=== PATIENT | female | born 1940 | race Caucasian/White ===

== ENCOUNTER 2017-12-01 19:10 | Emergency (ER) | payer MEDICARE, BC ==
--- NOTE | 2017-12-01 20:00 | EDM.PDOC ---
ED HPI GENERAL MEDICAL PROBLEM - General Stated Complaint: POSSIBLE BLOOD INFECTION Time Seen by Provider: 12/01/17 19:20 Source of Information: Reports: Patient History Limitations: Reports: No Limitations - History of Present Illness INITIAL COMMENTS - FREE TEXT/NARRATIVE: Patient comes in today with UTI symptoms. Patient's had ongoing issues with chronic UTIs for the past couple months she was seen in October and November both her UTI diagnosed TO BE ON MACROBID both times. Last dose OF MACROBID WAS YESTERDAY PATIENT STARTED HAVING SOME SYMPTOMS AGAIN TODAY BURNING FREQUENCY HESITANCY PATIENT DID TAKE 2 TABLETS OF AZO PRIOR TO COMING HERE. Denies any fever. 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 ASSISTANT: Reports: Other (see below) (azo) - Related Data Allergies Allergy/AdvReac Type Severity Reaction Status Date / Time aspirin Allergy Ringing in Verified 12/01/17 20:02 the Ears cefadroxil [Cefadroxil] Allergy Cough Verified 12/01/17 20:02 celecoxib [From Celebrex] Allergy Ringing in Verified 12/01/17 20:02 the Ears fexofenadine HCl Allergy Ringing in Verified 12/01/17 20:02 [From Linn] the Ears ibuprofen Allergy Ringing in Verified 12/01/17 20:02 the Ears Penicillins Allergy Itching Verified 12/01/17 20:02 Home Meds: Home Meds Ciprofloxacin [IJD: Ciprofloxacin HCl] 500 mg PO BID 7 Days #14 tab 12/01/17 [Rx ] Past Medical History Musculoskeletal History: Reports: Back Pain, Chronic - Past Surgical History Female Surgical History: Reports: Breast Biopsy Social & Family History - Tobacco Use Smoking Status *Q: Never Smoker Second Hand Smoke Exposure: No - Caffeine Use Caffeine Use: Reports: Coffee Caffeine Use Comment: in the morning - Alcohol Use Days Per Week of Alcohol Use: 0 - Recreational Drug Use Recreational Drug Use: No ED ROS GENERAL - Review of Systems Review Of Systems: See Below Constitutional: Reports: No Symptoms HEENT: Reports: No Symptoms Respiratory: Reports: No Symptoms Cardiovascular: Reports: No Symptoms GI/Abdominal: Reports: No Symptoms : Reports: Dysuria, Frequency, Pain, Urgency Musculoskeletal: Reports: No Symptoms Skin: Reports: No Symptoms ED EXAM, RENAL/ - Physical Exam Exam: See Below Exam Limited By: No Limitations General Appearance: Alert, WD/WN, No Apparent Distress Respiratory/Chest: No Respiratory Distress, Lungs Clear GI/Abdominal: Normal Bowel Sounds, Soft, Non-Tender, No Distention, No Abnormal Bruit, No Mass Back Exam: Normal Inspection, Full Range of Motion Extremities: Normal Inspection, Normal Range of Motion Neurological: Alert, Oriented, CN II-XII Intact, Normal Cognition Course - Orders/Labs/Meds Orders: Active Orders 24 hr Category Date Time Status CULTURE URINE [RM] Stat Lab 12/01/17 19:16 Uncollected UA W/MICROSCOPIC [URIN] Stat Lab 12/01/17 19:16 Uncollected Departure - Departure Time of Disposition: 20:20 Disposition: Home, Self-Care 01 Condition: Good Clinical Impression: UTI, Urinary tract infectious disease - Discharge Information Instructions: Urinary Tract Infection, Adult, [id number] Forms: ED Department Discharge Additional Instructions: Drink plenty of fluids Take AZO as needed for discomfort for max of 4-5 days cultures were obtained for sensitivity - My Orders Last 24 Hours: My Active Orders 12/01/17 19:16 CULTURE URINE [RM] Stat UA W/MICROSCOPIC [URIN] Stat - Assessment/Plan Last 24 Hours: My Active Orders 12/01/17 19:16 CULTURE URINE [RM] Stat UA W/MICROSCOPIC [URIN] Stat
[2017-12-01] MEDS ORDERED: Take Home: Ciprofloxacin 500 MG Tab, 2 Tab Pack PO ONE (20:21)
[2017-12-01] MEDS ORDERED: Ciprofloxacin 500 MG Tab PO ONE (20:22)
== END 2017-12-01 20:45 | disposition home or self-care (01) ==
LOC: VM.ED 19:10
DX: N39.0 Urinary tract infection, site not specified (principal); Z88.8 Allergy status to other drugs, medicaments and biological substances; Z88.0 Allergy status to penicillin
CPT/HCPCS: 81001; 87086; 99283; A9270

== ENCOUNTER 2018-01-01 11:31 | Emergency (ER) | payer MEDICARE, BC ==
[2018-01-01] MEDS ORDERED: Sodium Chloride 0.9% 10 ML Syringe FLUSH PRN (11:39)
[2018-01-01 12:28] LABS: CHLORIDE,CL 99 mmol/L (98-107); SODIUM,NA 136 mmol/L (136-145)
[2018-01-01] MEDS: Sodium Chloride 0.9% 1,000 ML IV SCH (13:55)
[2018-01-01] MEDS: Diazepam 5 MG Tab PO ONE (14:08)
[2018-01-01] MEDS: Diazepam 2 MG Tab PO ONE (14:11)
[2018-01-01] MEDS: Aspirin 81 MG Tab.Chew PO ONE (14:13)
--- NOTE | 2018-01-01 14:14 | EDM.PDOC ---
ED HPI GENERAL MEDICAL PROBLEM - General Chief Complaint: Neuro Symptoms/Deficits Stated Complaint: ER Time Seen by Provider: 01/01/18 11:37 Source of Information: Reports: Patient History Limitations: Reports: No Limitations - History of Present Illness INITIAL COMMENTS - FREE TEXT/NARRATIVE: This pt. presents to the ER with complaints of expressive aphasia and poor word retrieval that started at approx. 10:00 am and lasted until approx. 10:30 am. Pt. states that she also had blurred vision as well. She states that her visual barreto were normal, but her vision was otherwise less acute. Pt. state that she woke up this morning with a headache. The symptoms all resolved by the time she presented to the ER at approx. 11:30 AM, with the exception of the headache, which resolved within 30 min of arriving. Pt. denies any paresthesia to her extremities or face. states that her gait was normal. Her motor function was preserved and she actually drove herself to the hospital. Pt. states that she had an event similar to this approx. 13 years ago (pt. states 2004). She initially was unable to recall the symptoms, but relates that she had issues with expressive aphasia and word retrieval at that time as well. She has not had any sequale from this event, and denies any other history of other cerebrovascular disease, hypertension, or hyperlipidemia. She is a non- smoker. Onset: Today Location: Reports: Head Associated Symptoms: Reports: Headaches - Related Data Allergies Allergy/AdvReac Type Severity Reaction Status Date / Time Penicillins Allergy Itching Verified 01/01/18 12:00 aspirin AdvReac Ringing in Verified 01/01/18 12:00 the Ears cefadroxil [Cefadroxil] AdvReac Cough Verified 01/01/18 12:00 celecoxib [From Celebrex] AdvReac Ringing in Verified 01/01/18 12:00 the Ears fexofenadine HCl AdvReac Ringing in Verified 01/01/18 12:00 [From Linn] the Ears ibuprofen AdvReac Ringing in Verified 01/01/18 12:00 the Ears Home Meds: Home Meds Diazepam [Valium] 2.5 mg PO BEDTIME 01/01/18 [History] Past Medical History - Past Health History Medical/Surgical History: Denies Medical/Surgical History Genitourinary History: Reports: UTI, Recurrent Musculoskeletal History: Reports: Back Pain, Chronic - Past Surgical History Female Surgical History: Reports: Breast Biopsy Social & Family History - Tobacco Use Smoking Status *Q: Never Smoker Second Hand Smoke Exposure: No - Caffeine Use Caffeine Use: Reports: Coffee Caffeine Use Comment: in the morning - Alcohol Use Days Per Week of Alcohol Use: 0 - Recreational Drug Use Recreational Drug Use: No ED ROS GENERAL - Review of Systems Review Of Systems: See Below Constitutional: Reports: No Symptoms HEENT: Reports: Other (blurred vision, resolved) Respiratory: Reports: No Symptoms Cardiovascular: Reports: No Symptoms Endocrine: Reports: No Symptoms GI/Abdominal: Reports: No Symptoms : Reports: No Symptoms Musculoskeletal: Reports: No Symptoms Skin: Reports: No Symptoms Neurological: Reports: Headache, Trouble Speaking (see hpi) Psychiatric: Reports: No Symptoms Hematologic/Lymphatic: Reports: No Symptoms Immunologic: Reports: No Symptoms ED EXAM, NEURO - Physical Exam Exam: See Below Exam Limited By: No Limitations General Appearance: Alert, WD/WN, No Apparent Distress Eye Exam: Bilateral Eye: EOMI, Normal Fundi, Normal Inspection, PERRL Ears: Normal External Exam, Normal Canal, Hearing Grossly Normal, Normal TMs Nose: Normal Inspection, Normal Mucosa, No Blood Throat/Mouth: Normal Inspection, Normal Lips, Normal Teeth, Normal Oropharynx, Normal Voice, No Airway Compromise Head Exam: Atraumatic, Normocephalic Neck: Normal Inspection, Supple, Non-Tender, Full Range of Motion Respiratory/Chest: No Respiratory Distress, Lungs Clear, Normal Breath Sounds, No Accessory Muscle Use, Chest Non-Tender Cardiovascular: Normal Peripheral Pulses, Regular Rate, Rhythm, No Edema, No Gallop, No JVD, No Murmur, No Rub GI/Abdominal: Normal Bowel Sounds, Soft, Non-Tender, No Organomegaly, No Distention, No Abnormal Bruit, No Mass (Female) Exam: Deferred Rectal (Female) Exam: Deferred Neurological: Alert, Normal Mood/Affect, Normal Dorsiflexion, CN II-XII Intact, Normal Plantar Flexion, Normal Gait, Normal Reflexes, No Motor/Sensory Deficits , Oriented x 3, Other (No pronator drift. NIH stroke scale is 0.) DTR: 2+: Bicep (R), Bicep (L), Patella (R), Patella (L) Back Exam: Normal Inspection, Full Range of Motion, NT Extremities: Normal Inspection, Normal Range of Motion, Non-Tender, No Pedal Edema, Normal Capillary Refill Psychiatric: Normal Affect, Normal Mood Skin Exam: Warm, Dry, Intact, Normal Color, No Rash EKG INTERPRETATION Rhythm: NSR Trosper: Normal P-Wave: Present QRS: Normal ST-T: Normal QT: Normal Course - Vital Signs Last Recorded V/S: Last Vital Signs Temp 36.0 C 01/01/18 11:47 Pulse 96 01/01/18 13:42 Resp 18 01/01/18 11:47 BP 178/76 H 01/01/18 13:42 Pulse Ox 99 01/01/18 13:42 - Orders/Labs/Meds Orders: Active Orders 24 hr Category Date Time Status EKG Documentation Completion [RC] STAT Care 01/01/18 11:38 Active Head wo Cont [CT] Stat Exams 01/01/18 11:38 Taken Sodium Chloride 0.9% [Saline Flush] Med 01/01/18 11:39 Active 10 ml FLUSH ASDIRECTED PRN Peripheral IV Insertion Adult [OM.PC] Routine Oth 01/01/18 11:39 Ordered Medication Orders Sodium Chloride (Saline Flush) 10 ml FLUSH ASDIRECTED PRN PRN Reason: Keep Vein Open Labs: Laboratory Tests 01/01/18 01/01/18 01/01/18 Range/Units 11:58 11:58 11:58 WBC 9.2 (4.0-10.0) x10^3/uL RBC 4.21 (4.00-5.50) x10^6/uL Hgb 13.5 (12.0-16.0) g/dL Hct 39.1 (33.0-47.0) % MCV 92.9 (78.0-93.0) fL MCH 32.1 H (26.0-32.0) pg MCHC 34.5 (32.0-36.0) g/dL RDW Coeff of [place]ucky 12.4 (10.0-15.0) % Plt Count 369 (130-400) x10^3/uL Neut % (Auto) 65.1 (50.0-80.0) % Lymph % (Auto) 22.8 L (25.0-50.0) % [place] % (Auto) 11.3 H (2.0-11.0) % Eos % (Auto) 0.5 (0.0-4.0) % Baso % (Auto) 0.3 (0.2-1.2) % PT 9.9 (9.8-11.8) SEC INR 0.9 L (2.0-3.5) Sodium 136 (136-145) mmol/L Potassium 3.6 (3.5-5.1) mmol/L Chloride 99 (98-107) mmol/L Carbon Dioxide 24 (21-32) mmol/L BUN 11 (7-18) mg/dL Creatinine 0.9 (0.55-1.02) mg/dL Est Cr Clr Drug Dosing 49.00 mL/min Estimated GFR (MDRD) > 60 Glucose 120 H (74-106) mg/dL Calcium 9.2 (8.5-10.1) mg/dL Corrected Calcium 9.28 (8.5-10.1) mg/dL Total Bilirubin 0.8 (0.2-1.0) mg/dL AST 18 (15-37) U/L ALT 30 (14-59) U/L Alkaline Phosphatase 86 (46-116) U/L Troponin I < 0.017 (<=0.056) ng/mL C-Reactive Protein < 0.2 (<=0.9) mg/dL Total Protein 7.2 (6.4-8.2) g/dL Albumin 3.9 (3.4-5.0) g/dL Globulin 3.3 Albumin/Globulin Ratio 1.18 Urine Color (YELLOW) Urine Appearance (CLEAR) Urine pH (5.0-8.0) Ur Specific [place] Urine Protein (NEGATIVE) mg/dL Urine Glucose (UA) (NEGATIVE) mg/dL Urine Ketones (NEGATIVE) mg/dL Urine Occult Blood (NEGATIVE) Urine Nitrite (NEGATIVE) Urine Bilirubin (NEGATIVE) Urine Urobilinogen (0.2) EU/dL Ur Leukocyte Esterase (NEGATIVE) Urine RBC (NOT SEEN) /HPF Urine WBC (NOT SEEN) /HPF Ur Squamous Epith Cells (NEGATIVE) /HPF Urine Bacteria (NEGATIVE) /HPF Granular Casts (NEGATIVE) /HPF Urine Mucus (NEGATIVE) /LPF Urine Yeast (Budding) Ethyl Alcohol 4 H (0-3) mg/dL 01/01/18 Range/Units 12:10 WBC (4.0-10.0) x10^3/uL RBC (4.00-5.50) x10^6/uL Hgb (12.0-16.0) g/dL Hct (33.0-47.0) % MCV (78.0-93.0) fL MCH (26.0-32.0) pg MCHC (32.0-36.0) g/dL RDW Coeff of Chucky (10.0-15.0) % Plt Count (130-400) x10^3/uL Neut % (Auto) (50.0-80.0) % Lymph % (Auto) (25.0-50.0) % [place] % (Auto) (2.0-11.0) % Eos % (Auto) (0.0-4.0) % Baso % (Auto) (0.2-1.2) % PT (9.8-11.8) SEC INR (2.0-3.5) Sodium (136-145) mmol/L Potassium (3.5-5.1) mmol/L Chloride (98-107) mmol/L Carbon Dioxide (21-32) mmol/L BUN (7-18) mg/dL Creatinine (0.55-1.02) mg/dL Est Cr Clr Drug Dosing mL/min Estimated GFR (MDRD) Glucose (74-106) mg/dL Calcium (8.5-10.1) mg/dL Corrected Calcium (8.5-10.1) mg/dL Total Bilirubin (0.2-1.0) mg/dL AST (15-37) U/L ALT (14-59) U/L Alkaline Phosphatase (46-116) U/L Troponin I (<=0.056) ng/mL C-Reactive Protein (<=0.9) mg/dL Total Protein (6.4-8.2) g/dL Albumin (3.4-5.0) g/dL Globulin Albumin/Globulin Ratio Urine Color Yellow (YELLOW) Urine Appearance Slightly cloudy H (CLEAR) Urine pH 7.0 (5.0-8.0) Ur Specific [place] 1.020 Urine Protein Negative (NEGATIVE) mg/dL Urine Glucose (UA) Negative (NEGATIVE) mg/dL Urine Ketones Negative (NEGATIVE) mg/dL Urine Occult Blood Trace-intact H (NEGATIVE) Urine Nitrite Negative (NEGATIVE) Urine Bilirubin Negative (NEGATIVE) Urine Urobilinogen 0.2 (0.2) EU/dL Ur Leukocyte Esterase Negative (NEGATIVE) Urine RBC 0-5 (NOT SEEN) /HPF Urine WBC 5-10 H (NOT SEEN) /HPF Ur Squamous Epith Cells Rare (NEGATIVE) /HPF Urine Bacteria Few H (NEGATIVE) /HPF Granular Casts Rare H (NEGATIVE) /HPF Urine Mucus Rare H (NEGATIVE) /LPF Urine Yeast (Budding) Few Ethyl Alcohol (0-3) mg/dL Meds: Medications Generic Name Dose Route Start Last Admin Trade Name Freq PRN Reason Stop Dose Admin Sodium Chloride 10 ml 01/01/18 11:39 Saline Flush FLUSH ASDIRECTED PRN Keep Vein Open Discontinued Medications Generic Name Dose Route Start Last Admin Trade Name Freq PRN Reason Stop Dose Admin Aspirin 324 mg 01/01/18 13:49 Aspirin PO 01/01/18 13:50 ONETIME ONE Diazepam 5 mg 01/01/18 13:49 Valium. PO 01/01/18 13:50 ONETIME ONE - Radiology Interpretation Free Text/Narrative:: CT brain without contrast is negative for acute pathology. No hypodensity or other chronic changes noted. Departure - Departure Time of Disposition: 14:17 Disposition: DC/Tfer to Acute Hospital 02 Clinical Impression: TIA (transient ischemic attack) - Discharge Information Referrals: Silvia Ritchie DO [Primary Care Provider] - Forms: ED Department Discharge, Interfacility Transfer EMTALA - Problem List Review Problem List Initiated/Reviewed/Updated: Yes - My Orders Last 24 Hours: My Active Orders 01/01/18 11:38 EKG Documentation Completion [RC] STAT Head wo Cont [CT] Stat 01/01/18 11:39 Sodium Chloride 0.9% [Saline Flush] 10 ml FLUSH ASDIRECTED PRN Peripheral IV Insertion Adult [OM.PC] Routine - Assessment/Plan Last 24 Hours: My Active Orders 01/01/18 11:38 EKG Documentation Completion [RC] STAT Head wo Cont [CT] Stat 01/01/18 11:39 Sodium Chloride 0.9% [Saline Flush] 10 ml FLUSH ASDIRECTED PRN Peripheral IV Insertion Adult [OM.PC] Routine Assessment:: TIA Plan: Pt. will be transferred to [facility] in [place]. She will be transported by [facility] ground ambulance. Dr. Suazo is accepting.
== END 2018-01-01 14:58 | disposition short-term general hospital (02) ==
LOC: VM.ED 11:31
DX: G45.9 Transient cerebral ischemic attack, unspecified (principal); Z88.0 Allergy status to penicillin
CPT/HCPCS: 36415; 70450; 80053; 81001; 84484; 85025; 85610; 86140; 93005; 96360; 99285; A9270; G0480; J7030; 93010

== ENCOUNTER 2019-04-04 13:24 | Emergency (ER) | payer MEDICARE, BC ==
[2019-04-04] MEDS ORDERED: Sodium Chloride 0.9% 10 ML Syringe FLUSH PRN (13:37)
--- NOTE | 2019-04-04 13:52 | EDM.PDOC ---
ED HPI GENERAL MEDICAL PROBLEM - General Chief Complaint: Cardiovascular Problem Stated Complaint: RACING PULSE Time Seen by Provider: 04/04/19 13:27 Source of Information: Reports: Patient History Limitations: Reports: No Limitations - History of Present Illness INITIAL COMMENTS - FREE TEXT/NARRATIVE: Patient presents to the ED with complaints of possible TIA. She has had these in the past, most recently in December 2017. Work up in [place] at [place] did not show acute causes for TIA symptoms. Echo showed EF of 75%, normal sized atria and ventricles; mild mitral and tricuspid valve regurgitation, no valvular stenosis. Carotid ultrasound from 2014 showed bilateral stenosis of the carotid arteries of less than 15%. From reading that prior notation, she has also had a similar episode in 2005. She describes symptoms as dark spots in her visual field. No hemiparesis, no speech difficulty, no facial drooping. She states this lasted about 20 minutes. At that point, she began to notice a racing heart beat, shortness of breath, and pain in her neck. Symptoms have resolved upon arrival in the ED. Heart rate currently 140-160 and is in a-fib per EKG report. Blood pressure is elevated at 163/94. Denies smoking. Does drink on occasion. Very limited medical history but does include thyroid goiter , hyperlipidemia. No medications for HTN, no statin use. Takes baby aspirin one time per week as she states she bleeds if she takes to much ASA. Stated she started bleeding out of her ear when on 325 ASA. Current ABCD 2 score is 3 placing her in low risk category for stroke risk. Onset: Today, Sudden Duration: Resolved Prior to Arrival Associated Symptoms: Reports: Headaches Neck Pain Score (Numeric/FACES): 5 - Related Data Allergies Allergy/AdvReac Type Severity Reaction Status Date / Time atorvastatin Allergy Other Verified 04/04/19 14:13 Penicillins Allergy Itching Verified 01/01/18 12:00 aspirin AdvReac Ringing in Verified 01/01/18 12:00 the Ears cefadroxil [Cefadroxil] AdvReac Cough Verified 01/01/18 12:00 celecoxib [From Celebrex] AdvReac Ringing in Verified 01/01/18 12:00 the Ears fexofenadine HCl AdvReac Ringing in Verified 01/01/18 12:00 [From Linn] the Ears ibuprofen AdvReac Ringing in Verified 01/01/18 12:00 the Ears Home Meds: Home Meds diazePAM [Valium] 2.5 mg PO BEDTIME 01/01/18 [History] Past Medical History - Past Health History Medical/Surgical History: Denies Medical/Surgical History Genitourinary History: Reports: UTI, Recurrent Musculoskeletal History: Reports: Back Pain, Chronic - Past Surgical History Female Surgical History: Reports: Breast Biopsy Social & Family History - Caffeine Use Caffeine Use: Reports: Coffee Caffeine Use Comment: in the morning ED ROS GENERAL - Review of Systems Review Of Systems: See Below Constitutional: Reports: No Symptoms HEENT: Reports: No Symptoms Respiratory: Reports: No Symptoms Cardiovascular: Reports: No Symptoms Endocrine: Reports: No Symptoms GI/Abdominal: Reports: No Symptoms : Reports: No Symptoms Musculoskeletal: Reports: Neck Pain Skin: Reports: No Symptoms Neurological: Reports: Headache Psychiatric: Reports: No Symptoms Hematologic/Lymphatic: Reports: No Symptoms Immunologic: Reports: No Symptoms ED EXAM, GENERAL - Physical Exam Exam: See Below Exam Limited By: No Limitations General Appearance: Alert, WD/WN, No Apparent Distress Eye Exam: Bilateral Eye: EOMI, Normal Inspection, PERRL Ears: Normal External Exam, Normal Canal, Hearing Grossly Normal, Normal TMs Nose: Normal Inspection, Normal Mucosa, No Blood Throat/Mouth: Normal Inspection, Normal Lips, Normal Teeth, Normal Gums, Normal Oropharynx, Normal Voice, No Airway Compromise Head: Atraumatic, Normocephalic Neck: Thyromegaly (history of thyroid goiter) Respiratory/Chest: No Respiratory Distress, Lungs Clear, Normal Breath Sounds, No Accessory Muscle Use, Chest Non-Tender Cardiovascular: Irregularly Irregular (a-fib rates 140-180's) Peripheral Pulses: 2+: Posterior Tibial (L), Posterior Tibial (R), Dorsalis Pedis (L), Dorsalis Pedis (R) GI/Abdominal: Normal Bowel Sounds, Soft, Non-Tender, No Organomegaly, No Distention, No Abnormal Bruit, No Mass Back Exam: Normal Inspection, Full Range of Motion, NT Extremities: Normal Inspection, Normal Range of Motion, Non-Tender, Normal Capillary Refill, No Pedal Edema Neurological: Alert, Oriented, CN II-XII Intact, Normal Cognition, Normal Gait, Normal Reflexes, No Motor/Sensory Deficits Psychiatric: Normal Affect, Anxious Skin Exam: Warm, Dry, Intact, Normal Color, No Rash Lymphatic: No Adenopathy EKG INTERPRETATION EKG Date: 04/04/19 Time: 13:34 Rhythm: A-Fib Rate (Beats/Min): 148 [place]: Normal P-Wave: Absent QRS: Normal ST-T: Depressed QT: Normal Comparison: Change From Previous EKG Course - Vital Signs Last Recorded V/S: Last Vital Signs Temp 36.6 C 04/04/19 13:24 Pulse 90 04/04/19 15:53 Resp 18 04/04/19 15:53 BP 128/75 04/04/19 15:53 Pulse Ox 94 L 04/04/19 15:10 - Orders/Labs/Meds Orders: Active Orders 24 hr Category Date Time Status EKG 12 Lead [EKG Documentation Completion] [RC] STAT Care 04/04/19 15:02 Ordered EKG Documentation Completion [RC] STAT Care 04/04/19 13:37 Active Saline Lock Insert [OM.PC] Routine Oth 04/04/19 13:37 Ordered Labs: Laboratory Tests 04/04/19 04/04/19 04/04/19 Range/Units 13:33 13:33 13:33 WBC 11.2 H (4.0-10.0) x10^3/uL RBC 4.61 (4.00-5.50) x10^6/uL Hgb 15.0 D (12.0-16.0) g/dL Hct 43.2 (33.0-47.0) % MCV 93.7 H (78.0-93.0) fL MCH 32.5 H (26.0-32.0) pg MCHC 34.7 (32.0-36.0) g/dL RDW Coeff of Chucky 13.0 (10.0-15.0) % Plt Count 425 H (130-400) x10^3/uL Neut % (Auto) 71.4 (50.0-80.0) % Lymph % (Auto) 19.1 L (25.0-50.0) % Clark % (Auto) 8.8 (2.0-11.0) % Eos % (Auto) 0.4 (0.0-4.0) % Baso % (Auto) 0.3 (0.2-1.2) % PT 10.3 (10.0-12.8) SEC INR 0.9 L (2.0-3.5) D-Dimer, Quantitative (<=0.58) mg/LFEU Sodium 136 (136-145) mmol/L Potassium 3.4 L (3.5-5.1) mmol/L Chloride 97 L (98-107) mmol/L Carbon Dioxide 23 (21-32) mmol/L Anion Gap 19.4 (10-20) mmol/L BUN 12 (7-18) mg/dL Creatinine 0.9 (0.55-1.02) mg/dL Est Cr Clr Drug Dosing TNP Estimated GFR (MDRD) > 60 Glucose 142 H (74-106) mg/dL Calcium 9.4 (8.5-10.1) mg/dL Corrected Calcium 9.00 (8.5-10.1) mg/dL Magnesium 1.9 (1.8-2.4) mg/dL Total Bilirubin 0.9 (0.2-1.0) mg/dL AST 21 (15-37) U/L ALT 40 (14-59) U/L Alkaline Phosphatase 87 (46-116) U/L Troponin I < 0.017 (<=0.056) ng/mL NT-Pro-B Natriuret Pep 353 (<=450) pg/mL Total Protein 8.4 H (6.4-8.2) g/dL Albumin 4.5 (3.4-5.0) g/dL Globulin 3.9 Albumin/Globulin Ratio 1.15 Triglycerides (0-149) mg/dL Cholesterol (0-199) mg/dL LDL Cholesterol, Calc (0-130) mg/dL HDL Cholesterol (40-59) mg/dL TSH, Ultra Sensitive 1.930 (0.358-3.74) uIU/mL Urine Color (YELLOW) Urine Appearance (CLEAR) Urine pH (5.0-8.0) Ur Specific Mode Urine Protein (NEGATIVE) mg/dL Urine Glucose (UA) (NEGATIVE) mg/dL Urine Ketones (NEGATIVE) mg/dL Urine Occult Blood (NEGATIVE) Urine Nitrite (NEGATIVE) Urine Bilirubin (NEGATIVE) Urine Urobilinogen (0.2) EU/dL Ur Leukocyte Esterase (NEGATIVE) Urine RBC (NOT SEEN) /HPF Urine WBC (NOT SEEN) /HPF Ur Squamous Epith Cells (NEGATIVE) /HPF Urine Bacteria (NEGATIVE) /HPF Hyaline Casts (NEGATIVE) /HPF Urine Mucus (NEGATIVE) /LPF Ethyl Alcohol < 3 (0-3) mg/dL 04/04/19 04/04/19 04/04/19 Range/Units 13:33 13:33 14:07 WBC (4.0-10.0) x10^3/uL RBC (4.00-5.50) x10^6/uL Hgb (12.0-16.0) g/dL Hct (33.0-47.0) % MCV (78.0-93.0) fL MCH (26.0-32.0) pg MCHC (32.0-36.0) g/dL RDW Coeff of Chucky (10.0-15.0) % Plt Count (130-400) x10^3/uL Neut % (Auto) (50.0-80.0) % Lymph % (Auto) (25.0-50.0) % Clark % (Auto) (2.0-11.0) % Eos % (Auto) (0.0-4.0) % Baso % (Auto) (0.2-1.2) % PT (10.0-12.8) SEC INR (2.0-3.5) D-Dimer, Quantitative 0.31 (<=0.58) mg/LFEU Sodium (136-145) mmol/L Potassium (3.5-5.1) mmol/L Chloride (98-107) mmol/L Carbon Dioxide (21-32) mmol/L Anion Gap (10-20) mmol/L BUN (7-18) mg/dL Creatinine (0.55-1.02) mg/dL Est Cr Clr Drug Dosing Estimated GFR (MDRD) Glucose (74-106) mg/dL Calcium (8.5-10.1) mg/dL Corrected Calcium (8.5-10.1) mg/dL Magnesium (1.8-2.4) mg/dL Total Bilirubin (0.2-1.0) mg/dL AST (15-37) U/L ALT (14-59) U/L Alkaline Phosphatase (46-116) U/L Troponin I (<=0.056) ng/mL NT-Pro-B Natriuret Pep (<=450) pg/mL Total Protein (6.4-8.2) g/dL Albumin (3.4-5.0) g/dL Globulin Albumin/Globulin Ratio Triglycerides 151 H (0-149) mg/dL Cholesterol 242 H (0-199) mg/dL LDL Cholesterol, Calc 96 (0-130) mg/dL HDL Cholesterol 116 H (40-59) mg/dL TSH, Ultra Sensitive (0.358-3.74) uIU/mL Urine Color Yellow (YELLOW) Urine Appearance Slightly cloudy H (CLEAR) Urine pH 6.0 (5.0-8.0) Ur Specific Mode 1.010 Urine Protein Negative (NEGATIVE) mg/dL Urine Glucose (UA) Negative (NEGATIVE) mg/dL Urine Ketones Trace H (NEGATIVE) mg/dL Urine Occult Blood Trace-intact H (NEGATIVE) Urine Nitrite Negative (NEGATIVE) Urine Bilirubin Negative (NEGATIVE) Urine Urobilinogen 0.2 (0.2) EU/dL Ur Leukocyte Esterase Negative (NEGATIVE) Urine RBC 0-5 (NOT SEEN) /HPF Urine WBC 0-5 (NOT SEEN) /HPF Ur Squamous Epith Cells Rare (NEGATIVE) /HPF Urine Bacteria Rare (NEGATIVE) /HPF Hyaline Casts Rare H (NEGATIVE) /HPF Urine Mucus Rare H (NEGATIVE) /LPF Ethyl Alcohol (0-3) mg/dL Meds: Medications Discontinued Medications Generic Name Dose Route Start Last Admin Trade Name Freq PRN Reason Stop Dose Admin Diltiazem HCl 20 mg 04/04/19 14:10 04/04/19 14:17 Cardizem IVPUSH 04/04/19 14:11 20 mg ONETIME ONE Administration Sodium Chloride 10 ml 04/04/19 13:37 Saline Flush FLUSH ASDIRECTED PRN Keep Vein Open - Radiology Interpretation Free Text/Narrative:: Chest x-ray negative for acute process Head CT negative for hemorrhage, ischemia, mass or fluid collection. Cervical x-ray shows worsening cervical spondylosis, no acute process - Re-Assessments/Exams Free Text/Narrative Re-Assessment/Exam: 04/04/19 15:09 Conversion from atrial fibrillation to sinus at 1505 Departure - Departure Time of Disposition: 16:15 Disposition: DC/Tfer to Acute Hospital 02 Reason for Transfer *Q: Other Condition: Fair Clinical Impression: Atrial fibrillation Referrals: Silvia Ritchie DO [Primary Care Provider] - Forms: ED Department Discharge, Interfacility Transfer [facility] ED Communication - ED Communication Date/Time Date: 04/04/19 Time Called: 15:00 - Discussed Case With (1) Discussed Case With (1): Admitting Provider (Dr. Khan contacted at [place]. Report given to he and one call RN. Care accepted. Await room number and transfer to facility per [facility] ambulance) - My Orders Last 24 Hours: My Active Orders 04/04/19 13:37 EKG Documentation Completion [RC] STAT Saline Lock Insert [OM.PC] Routine 04/04/19 15:02 EKG 12 Lead [EKG Documentation Completion] [RC] STAT - Assessment/Plan Last 24 Hours: My Active Orders 04/04/19 13:37 EKG Documentation Completion [RC] STAT Saline Lock Insert [OM.PC] Routine 04/04/19 15:02 EKG 12 Lead [EKG Documentation Completion] [RC] STAT
[2019-04-04] MEDS ORDERED: Diltiazem 50 MG/10 ML SDV IVPUSH ONE (14:10)
--- NOTE | 2019-04-04 14:21 | CR ---
[id number] RAD/RAD Chest PA or AP 1V EXAM: SINGLE VIEW CHEST. INDICATION: SHORTNESS OF BREATH COMPARISON: NO PREVIOUS SIMILAR EXAM IS AVAILABLE FINDINGS: The lungs are clear and hyperaerated. The cardiomedial some contour is mildly prominent. IMPRESSION: AIRWAY DISEASE. Jonathan Wyatt MD 04/04/19 [id number] Thank you for allowing us to participate in the care of your patient.
[2019-04-04 14:22] LABS: CHLORIDE,CL 97 mmol/L (98-107); SODIUM,NA 136 mmol/L (136-145)
[2019-04-04 14:23] LABS: ANION GAP 19.4 mmol/L (10-20)
--- NOTE | 2019-04-04 14:29 | CT ---
[id number] CT/CT Head WO IV EXAM: CT Head WO IV CLINICAL DATA: TIA. COMPARISON STUDY: December 2017. FINDINGS: No intracranial hemorrhage, extra-axial fluid collection, mass, or acute ischemia. No hydrocephalus. Paranasal sinuses and mastoid air cells are clear. IMPRESSION: Negative examination of the brain. Héctor Sotelo MD 04/04/19 [id number] Thank you for allowing us to participate in the care of your patient.
--- NOTE | 2019-04-04 15:27 | CR ---
[id number] RAD/RAD Cervical Spine 2-3V Exam: RAD Cervical Spine 2-3V Indication:NECK PAIN. Comparison: No prior imaging for comparison. Discussion: Straightening of normal cervical lordosis with changes of spondylosis diffusely throughout the cervical spine. Findings including advanced degenerative disc disease at C5-6 and C6-7. Multiple levels of advanced facet joint arthropathy as well, most prominent on the left at C4-5. Bones are diffusely demineralized. No fracture or compression deformity. Impression: Advanced changes of cervical spondylosis. Héctor Sotelo MD 04/04/19 1526 Thank you for allowing us to participate in the care of your patient.
== END 2019-04-04 16:15 | disposition short-term general hospital (02) ==
LOC: VM.ED 13:24
DX: I48.91 Unspecified atrial fibrillation (principal); Z88.0 Allergy status to penicillin; Z88.6 Allergy status to analgesic agent; Z88.8 Allergy status to other drugs, medicaments and biological substances
CPT/HCPCS: 70450; 71045; 72040; 80053; 80061; 81001; 83735; 83880; 84443; 84484; 85025; 85379; 85610; 93005; 96374; 99285; G0480; J3490; 93010

== ENCOUNTER 2019-05-03 18:34 | Emergency (ER) | payer MEDICARE, BC ==
[2019-05-03] MEDS ORDERED: Sodium Chloride 0.9% 10 ML Syringe FLUSH PRN (18:44)
[2019-05-03] MEDS: Ondansetron 4 MG/2 ML SDV IVPUSH ONE (18:50)
[2019-05-03] MEDS: Diltiazem 50 MG/10 ML SDV IVPUSH ONE (18:50)
[2019-05-03] MEDS: Sodium Chloride 0.9% 1,000 ML IV ONE (19:00)
[2019-05-03 19:21] LABS: CHLORIDE,CL 97 mmol/L (98-107); SODIUM,NA 136 mmol/L (136-145)
[2019-05-03 19:29] LABS: ANION GAP 18.4 mmol/L (10-20)
--- NOTE | 2019-05-03 19:30 | EDM.PDOC ---
ED HPI GENERAL MEDICAL PROBLEM - General Chief Complaint: Cardiovascular Problem Stated Complaint: GENERAL Time Seen by Provider: 05/03/19 18:36 Source of Information: Reports: Patient, Family History Limitations: Reports: No Limitations - History of Present Illness INITIAL COMMENTS - FREE TEXT/NARRATIVE: Patient presents with complaints of visual disturbance in her right and left eyes, heart palpitations, and dizziness. She reports this is similar to her prior incident last month. I saw her at that time and she was in A-fib with RVR. Sent to [facility] as this was new onset. She was started on Xarelto for stroke prevention. She has no other complaints. She stated this started when she was mowing her lawn on the riding lawnmower. She denies headache, neck pain , no chest pain or SOB, no unilateral weakness, numbness, or tingling. Denies nausea or vomiting. No other complaints. EKG shows her to be in Atrial Fibrillation with rate in the 150-160's and hypertensive. Onset: Today, Sudden Duration: Intermittent Location: Reports: Generalized Severity: Moderate - Related Data Allergies Allergy/AdvReac Type Severity Reaction Status Date / Time atorvastatin Allergy Other Verified 05/03/19 18:45 Penicillins Allergy Itching Verified 05/03/19 18:45 aspirin AdvReac Ringing in Verified 05/03/19 18:45 the Ears cefadroxil [Cefadroxil] AdvReac Cough Verified 05/03/19 18:45 celecoxib [From Celebrex] AdvReac Ringing in Verified 05/03/19 18:45 the Ears fexofenadine HCl AdvReac Ringing in Verified 05/03/19 18:45 [From Linn] the Ears ibuprofen AdvReac Ringing in Verified 05/03/19 18:45 the Ears Home Meds: Home Meds diazePAM [Valium] 2.5 mg PO BEDTIME 01/01/18 [History] Acetaminophen with Codeine [Tylenol with Codeine #3 Tablet] 1 tab PO DAILY PRN 05/03/19 [History] Calcium Citrate/Vitamin D3 [Calcium Citrate - Vit D Caplet] 1 tab PO DAILY 05/03 [History] Estradiol [Estrace 0.01% Vaginal Crm] 1 appful VAG ASDIRECTED 05/03/19 [History] Multivitamin [Multivitamins] 1 tab PO DAILY 05/03/19 [History] Orphenadrine Citrate [Orphenadrine Citrate ER] 1 tab PO BID PRN 05/03/19 [ History] Rivaroxaban [Xarelto] 1 tab PO DAILY 05/03/19 [History] Past Medical History - Past Health History Medical/Surgical History: Denies Medical/Surgical History HEENT History: Reports: Cataract, Other (See Below) Other HEENT History: hypermetropia. presbyopia. astigmatism Cardiovascular History: Reports: High Cholesterol Respiratory History: Reports: Sleep Apnea Gastrointestinal History: Reports: Diverticulosis Genitourinary History: Reports: UTI, Recurrent Other Genitourinary History: ecoli UTI. 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: Reports: Other (See Below) Other WORKERS COMPENSATION MANAGER History: atrophic vaginitis Musculoskeletal History: Reports: Back Pain, Chronic Psychiatric History: Reports: Anxiety Endocrine/Metabolic History: Reports: Osteoporosis, Other (See Below) Other Endocrine/Metabolic History: thyroid goiter Immunologic History: Reports: Other (See Below) Other Immunologic History: enlarged lymph nodes Dermatologic History: Reports: Other (See Below) Other Dermatologic History: actinic keratosis - Past Surgical History Female Surgical History: Reports: Breast Biopsy Social & Family History - Caffeine Use Caffeine Use: Reports: Coffee Caffeine Use Comment: in the morning ED ROS GENERAL - Review of Systems Review Of Systems: See Below Constitutional: Reports: No Symptoms HEENT: Reports: Vision Change (vision is normal on presentation) Respiratory: Reports: No Symptoms Cardiovascular: Reports: Palpitations Endocrine: Reports: No Symptoms GI/Abdominal: Reports: No Symptoms : Reports: No Symptoms Musculoskeletal: Reports: No Symptoms Skin: Reports: No Symptoms Neurological: Reports: Dizziness Psychiatric: Reports: Anxiety Hematologic/Lymphatic: Reports: No Symptoms Immunologic: Reports: No Symptoms ED EXAM, GENERAL - Physical Exam Exam: See Below Exam Limited By: No Limitations General Appearance: Alert, WD/WN, Mild Distress Eye Exam: Bilateral Eye: EOMI, Normal Inspection, PERRL Ears: Normal TMs Nose: Normal Inspection, Normal Mucosa, No Blood Throat/Mouth: Normal Inspection, Normal Lips, Normal Teeth, Normal Gums, Normal Oropharynx, Normal Voice, No Airway Compromise Head: Atraumatic, Normocephalic Neck: Normal Inspection, Supple, Non-Tender, Full Range of Motion Respiratory/Chest: No Respiratory Distress, Lungs Clear, Normal Breath Sounds, No Accessory Muscle Use, Chest Non-Tender Cardiovascular: No Murmur, Irregularly Irregular Peripheral Pulses: 2+: Posterior Tibial (L), Posterior Tibial (R), Dorsalis Pedis (L), Dorsalis Pedis (R) GI/Abdominal: Normal Bowel Sounds, Soft, Non-Tender, No Organomegaly, No Distention, No Abnormal Bruit, No Mass Back Exam: Normal Inspection, Full Range of Motion, NT Extremities: Normal Inspection, Normal Range of Motion, Non-Tender, Normal Capillary Refill, No Pedal Edema Neurological: Alert, Oriented, CN II-XII Intact, Normal Cognition, Normal Gait, Normal Reflexes, No Motor/Sensory Deficits Psychiatric: Normal Affect, Normal Mood Skin Exam: Warm, Dry, Intact, Normal Color, No Rash Lymphatic: No Adenopathy Course - Vital Signs Last Recorded V/S: Last Vital Signs Temp 36.5 C 05/03/19 18:35 Pulse 155 H 05/03/19 18:35 Resp 16 05/03/19 18:35 BP 175/90 H 05/03/19 18:35 Pulse Ox 98 05/03/19 18:35 - Orders/Labs/Meds Orders: Active Orders 24 hr Category Date Time Status EKG 12 Lead [EKG Documentation Completion] [RC] STAT Care 05/03/19 18:41 Active Sodium Chloride 0.9% [Normal Saline] 1,000 ml Med 05/03/19 20:15 Ordered IV ASDIRECTED Sodium Chloride 0.9% [Saline Flush] Med 05/03/19 18:44 Active 10 ml FLUSH ASDIRECTED PRN Saline Lock Insert [OM.PC] Routine Oth 05/03/19 18:44 Ordered Medication Orders Sodium Chloride (Normal Saline) 1,000 mls @ 999 mls/hr IV ASDIRECTED DYLAN Sodium Chloride (Saline Flush) 10 ml FLUSH ASDIRECTED PRN PRN Reason: Keep Vein Open Labs: Laboratory Tests 05/03/19 05/03/19 05/03/19 Range/Units 18:42 18:42 18:42 WBC 13.1 H (4.0-10.0) x10^3/uL RBC 2.63 L (4.00-5.50) x10^6/uL Hgb 8.7 L D (12.0-16.0) g/dL Hct 26.2 L (33.0-47.0) % MCV 99.6 H D (78.0-93.0) fL MCH 33.1 H (26.0-32.0) pg MCHC 33.2 (32.0-36.0) g/dL RDW Coeff of Chucky 14.9 (10.0-15.0) % Plt Count 454 H (130-400) x10^3/uL Neut % (Auto) 60.1 (50.0-80.0) % Lymph % (Auto) 29.7 (25.0-50.0) % Stark % (Auto) 9.0 (2.0-11.0) % Eos % (Auto) 0.9 (0.0-4.0) % Baso % (Auto) 0.3 (0.2-1.2) % PT 12.0 (10.0-12.8) SEC INR 1.1 L (2.0-3.5) Sodium 136 (136-145) mmol/L Potassium 3.4 L (3.5-5.1) mmol/L Chloride 97 L (98-107) mmol/L Carbon Dioxide 24 (21-32) mmol/L Anion Gap 18.4 (10-20) mmol/L BUN 23 H (7-18) mg/dL Creatinine 1.3 H (0.55-1.02) mg/dL Est Cr Clr Drug Dosing TNP Estimated GFR (MDRD) 40 Glucose 123 H (74-106) mg/dL Calcium 9.5 (8.5-10.1) mg/dL Corrected Calcium 9.66 (8.5-10.1) mg/dL Magnesium 2.0 (1.8-2.4) mg/dL Total Bilirubin 0.4 (0.2-1.0) mg/dL AST 27 (15-37) U/L ALT 33 (14-59) U/L Alkaline Phosphatase 69 (46-116) U/L Troponin I < 0.017 (<=0.056) ng/mL NT-Pro-B Natriuret Pep 456 H (<=450) pg/mL Total Protein 7.0 (6.4-8.2) g/dL Albumin 3.8 (3.4-5.0) g/dL Globulin 3.2 Albumin/Globulin Ratio 1.19 TSH, Ultra Sensitive 3.191 (0.358-3.74) uIU/mL Urine Color (YELLOW) Urine Appearance (CLEAR) Urine pH (5.0-8.0) Ur Specific [place] Urine Protein (NEGATIVE) mg/dL Urine Glucose (UA) (NEGATIVE) mg/dL Urine Ketones (NEGATIVE) mg/dL Urine Occult Blood (NEGATIVE) Urine Nitrite (NEGATIVE) Urine Bilirubin (NEGATIVE) Urine Urobilinogen (0.2) EU/dL Ur Leukocyte Esterase (NEGATIVE) Urine RBC (NOT SEEN) /HPF Urine WBC (NOT SEEN) /HPF Ur Squamous Epith Cells (NEGATIVE) /HPF Urine Mucus (NEGATIVE) /LPF 05/03/19 Range/Units 19:35 WBC (4.0-10.0) x10^3/uL RBC (4.00-5.50) x10^6/uL Hgb (12.0-16.0) g/dL Hct (33.0-47.0) % MCV (78.0-93.0) fL MCH (26.0-32.0) pg MCHC (32.0-36.0) g/dL RDW Coeff of Chucky (10.0-15.0) % Plt Count (130-400) x10^3/uL Neut % (Auto) (50.0-80.0) % Lymph % (Auto) (25.0-50.0) % Stark % (Auto) (2.0-11.0) % Eos % (Auto) (0.0-4.0) % Baso % (Auto) (0.2-1.2) % PT (10.0-12.8) SEC INR (2.0-3.5) Sodium (136-145) mmol/L Potassium (3.5-5.1) mmol/L Chloride (98-107) mmol/L Carbon Dioxide (21-32) mmol/L Anion Gap (10-20) mmol/L BUN (7-18) mg/dL Creatinine (0.55-1.02) mg/dL Est Cr Clr Drug Dosing Estimated GFR (MDRD) Glucose (74-106) mg/dL Calcium (8.5-10.1) mg/dL Corrected Calcium (8.5-10.1) mg/dL Magnesium (1.8-2.4) mg/dL Total Bilirubin (0.2-1.0) mg/dL AST (15-37) U/L ALT (14-59) U/L Alkaline Phosphatase (46-116) U/L Troponin I (<=0.056) ng/mL NT-Pro-B Natriuret Pep (<=450) pg/mL Total Protein (6.4-8.2) g/dL Albumin (3.4-5.0) g/dL Globulin Albumin/Globulin Ratio TSH, Ultra Sensitive (0.358-3.74) uIU/mL Urine Color Yellow (YELLOW) Urine Appearance Clear (CLEAR) Urine pH 6.0 (5.0-8.0) Ur Specific [place] 1.010 Urine Protein Negative (NEGATIVE) mg/dL Urine Glucose (UA) Negative (NEGATIVE) mg/dL Urine Ketones 15 H (NEGATIVE) mg/dL Urine Occult Blood Trace-intact H (NEGATIVE) Urine Nitrite Negative (NEGATIVE) Urine Bilirubin Negative (NEGATIVE) Urine Urobilinogen 0.2 (0.2) EU/dL Ur Leukocyte Esterase Negative (NEGATIVE) Urine RBC 0-5 (NOT SEEN) /HPF Urine WBC Not seen (NOT SEEN) /HPF Ur Squamous Epith Cells Few H (NEGATIVE) /HPF Urine Mucus Rare H (NEGATIVE) /LPF Meds: Medications Generic Name Dose Route Start Last Admin Trade Name Freq PRN Reason Stop Dose Admin Sodium Chloride 1,000 mls @ 999 mls/hr 05/03/19 20:15 Normal Saline IV ASDIRECTED DYLAN Sodium Chloride 10 ml 05/03/19 18:44 Saline Flush FLUSH ASDIRECTED PRN Keep Vein Open Discontinued Medications Generic Name Dose Route Start Last Admin Trade Name Freq PRN Reason Stop Dose Admin Diltiazem HCl 25 mg 05/03/19 18:44 05/03/19 18:50 Cardizem IVPUSH 05/03/19 18:45 25 mg ONETIME ONE Administration Sodium Chloride 1,000 mls @ 999 mls/hr 05/03/19 18:44 05/03/19 19:00 Normal Saline IV 05/03/19 19:44 999 mls/hr ONETIME ONE Administration Ondansetron HCl 4 mg 05/03/19 18:45 05/03/19 18:50 Zofran IVPUSH 05/03/19 18:46 4 mg ONETIME ONE Administration - Re-Assessments/Exams Free Text/Narrative Re-Assessment/Exam: 05/03/19 19:24 25 mg cardizem IV given to patient which did convert her to sinus with a rate of 84 BPM Patient is feeling better. Will discharge with recommendation to follow up with PCP to address either beta junior or calcium channel junior administration. Departure - Departure Time of Disposition: 21:01 Disposition: Home, Self-Care 01 Condition: Good Clinical Impression: Atrial fibrillation Instructions: Atrial Fibrillation, [id number] Referrals: Silvia Ritchie, DO [Primary Care Provider] - Forms: ED Department Discharge Additional Instructions: Plan 1. Please follow up with Dr. Ritchie on Sunday to determine if you should be started on a calcium channel junior like cardizem, or a beta junior like toprol. 2. They may not have started you on these due to your being dizzy when changing positions. 3. You need to stay well hydrated. Labs today were good. No acute reason for you a-fib except that you were dehydrated and blood pressure was high. 4. Please return if your symptoms come back 5. Call if you have any further questions or concerns - Problem List & Annotations (1) Atrial fibrillation SNOMED Code(s): 84282838 Code(s): I48.91 - UNSPECIFIED ATRIAL FIBRILLATION Status: Acute Priority : Low Current Visit: Yes Qualifiers: Atrial fibrillation type: paroxysmal Qualified Code(s): I48.0 - Paroxysmal atrial fibrillation - Problem List Review Problem List Initiated/Reviewed/Updated: Yes - My Orders Last 24 Hours: My Active Orders 05/03/19 18:41 EKG 12 Lead [EKG Documentation Completion] [RC] STAT 05/03/19 18:44 Sodium Chloride 0.9% [Saline Flush] 10 ml FLUSH ASDIRECTED PRN Saline Lock Insert [OM.PC] Routine 05/03/19 20:15 Sodium Chloride 0.9% [Normal Saline] 1,000 ml IV ASDIRECTED - Assessment/Plan Last 24 Hours: My Active Orders 05/03/19 18:41 EKG 12 Lead [EKG Documentation Completion] [RC] STAT 05/03/19 18:44 Sodium Chloride 0.9% [Saline Flush] 10 ml FLUSH ASDIRECTED PRN Saline Lock Insert [OM.PC] Routine 05/03/19 20:15 Sodium Chloride 0.9% [Normal Saline] 1,000 ml IV ASDIRECTED Assessment:: paroxysmal a-fib Plan: Plan 1. Please follow up with Dr. Ritchie on Sunday to determine if you should be started on a calcium channel junior like cardizem, or a beta junior like toprol. 2. They may not have started you on these due to your being dizzy when changing positions. 3. You need to stay well hydrated. Labs today were good. No acute reason for you a-fib except that you were dehydrated and blood pressure was high. 4. Please return if your symptoms come back 5. Call if you have any further questions or concerns
--- NOTE | 2019-05-03 19:55 | CR ---
[id number] RAD/RAD Chest PA And Lateral EXAM: RAD Chest PA And Lateral INDICATION: PALPITATIONS COMPARISON: April 04, 2019. DISCUSSION: Cardiomediastinal silhouette is normal in size and contour. No infiltrate, effusion, pneumothorax, or edema. Stable nodular density overlying the left lung base. IMPRESSION: No acute cardiopulmonary findings. Stable nodular density overlying the left lung base likely represents a calcified granuloma. Bony Paulson DO 05/03/19 195 Thank you for allowing us to participate in the care of your patient.
[2019-05-03] MEDS: Sodium Chloride 0.9% 1,000 ML IV SCH (20:02)
== END 2019-05-03 21:03 | disposition home or self-care (01) ==
LOC: VM.ED 18:34
DX: I48.0 Paroxysmal atrial fibrillation (principal); F41.9 Anxiety disorder, unspecified; E78.00 Pure hypercholesterolemia, unspecified; Z79.899 Other long term (current) drug therapy; Z88.6 Allergy status to analgesic agent; Z88.8 Allergy status to other drugs, medicaments and biological substances; Z88.0 Allergy status to penicillin; Z88.1 Allergy status to other antibiotic agents
CPT/HCPCS: 71045; 80053; 81001; 83735; 83880; 84443; 84484; 85025; 85610; 93005; 96361; 96374; 96375; 99285; J2405; J3490; J7030; 99284-GF

== ENCOUNTER 2020-05-04 18:56 | Emergency (ER) | payer MEDICARE, BC ==
--- NOTE | 2020-05-04 19:16 | EDM.PDOC ---
ED HPI GENERAL MEDICAL PROBLEM - General Chief Complaint: General Stated Complaint: CHEST PAIN Time Seen by Provider: 05/04/20 19:00 Source of Information: Reports: Patient, Family History Limitations: Reports: No Limitations - History of Present Illness INITIAL COMMENTS - FREE TEXT/NARRATIVE: Patient states today after having a full day of pulling weeds in the garden mowing the yard about 5 PM patient had midsternal chest pressure lasted about 45 minutes she cannot quantify how bad it hurt she states just a little it went away then she had a few minutes of seeing spots that went away she checked her blood pressure it was [id number] cannot member the bottom number took 1 of her p.m. blood pressure medicines and rechecked it in 5 minutes with no changes she then called her son from [place] who brought her here to the emergency room. She states the chest pressure is better almost gone the spots resolved after just a few minutes at home she said she has had this happen before when she had a TIA 2 years ago where she was checked out she had normal carotid ultrasounds normal MRI and a full work-up with normal findings. Memorial weekend of last year she was diagnosed with A. fib was seen by citizenship teacher but did not have a cath only an echo which was normal she was placed on blood thinners for just about a month and then taken off of them secondary to internal GI bleeding and anemia and has not been on anything since nor she had any problems with A. fib since. She denies any other complaints at this time states she cannot take aspirin and will not take any. Duration: Hour(s): Location: Reports: Chest Quality: Reports: Pressure Improves with: Reports: Other (Time) Associated Symptoms: Reports: Confusion, Other (Patient did states she had about 5 minutes of forgetfulness for she could not remember what she was supposed be doing nor the gentleman that was supposed to be coming to her house named eren from [employer] but was able to recall it later). Denies: Chest Pain, Cough, cough w sputum, Diaphoresis, Fever/Chills, Headaches, Loss of Appetite, Malaise, Nausea/Vomiting, Rash, Seizure, Shortness of Breath, Syncope - Related Data Allergies Allergy/AdvReac Type Severity Reaction Status Date / Time acetaminophen [From Tylenol] Allergy Other Verified 05/04/20 19:50 atorvastatin Allergy Other Verified 05/04/20 19:50 Penicillins Allergy Itching Verified 05/04/20 19:50 aspirin AdvReac Ringing in Verified 05/04/20 19:50 the Ears cefadroxil [Cefadroxil] AdvReac Cough Verified 05/04/20 19:50 celecoxib [From Celebrex] AdvReac Ringing in Verified 05/04/20 19:50 the Ears fexofenadine HCl AdvReac Ringing in Verified 05/04/20 19:50 [From Linn] the Ears ibuprofen AdvReac Ringing in Verified 05/04/20 19:50 the Ears Home Meds: Home Meds diazePAM [Valium] 0.25 - 0.5 tab PO BID PRN 01/01/18 [History] Calcium Citrate/Vitamin D3 [Calcium Citrate - Vit D Caplet] 2 tab PO DAILY 05/03/19 [History] Multivitamin [Multivitamins] 1 tab PO DAILY 05/03/19 [History] Orphenadrine Citrate [Orphenadrine Citrate ER] 1 tab PO DAILY PRN 05/03/19 [History] estradioL [Estrace 0.01% Vaginal Crm] 1 appful VAG ASDIRECTED 05/03/19 [History] Acetaminophen with Codeine [Acetaminophen-Cod #3] 0.25 tab PO DAILY PRN 08/14/19 [History] dilTIAZem HCL [Cardizem] 30 mg PO QID 08/14/19 [History] Cod Liver Oil 2 cap PO DAILY 05/04/20 [History] Past Medical History - Past Health History Medical/Surgical History: Denies Medical/Surgical History HEENT History: Reports: Cataract Other HEENT History: hypermetropia. astigmatism. presbyopia. transient visual disturbance. nuclear sclerotic cataract. retinal drusen of right eye Cardiovascular History: Reports: Afib, High Cholesterol Respiratory History: Reports: Other (See Below) Other Respiratory History: sleep related hypoxia Gastrointestinal History: Reports: Diverticulosis Other Gastrointestinal History: abdominal pain Genitourinary History: Reports: UTI, Recurrent Other Genitourinary History: hematuria. post menopausal arophic vaginitis. 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: Other (See Below) Other PRINCIPAL SOFTWARE ARCHITECT History: atrophic vaginitis Musculoskeletal History: Reports: Osteoporosis Other Neuro History: insomnia Psychiatric History: Reports: Anxiety Endocrine/Metabolic History: Reports: Osteoporosis, Other (See Below) Other Endocrine/Metabolic History: thyroid goiter Other Hematologic History: lymph node bx/exc Immunologic History: Reports: Other (See Below) Other Immunologic History: enlarged lymph nodes Dermatologic History: Reports: Other (See Below) Other Dermatologic History: actinic keratosis - Past Surgical History Female Surgical History: Reports: Breast Biopsy Social & Family History - Caffeine Use Caffeine Use: Reports: Coffee Caffeine Use Comment: in the morning ED ROS GENERAL - Review of Systems Review Of Systems: See Below Constitutional: Reports: No Symptoms. Denies: Fever, Chills, Malaise, Weakness, Fatigue, Night Sweats, Diaphoresis HEENT: Reports: No Symptoms, Vision Change. Denies: Vertigo Respiratory: Denies: Shortness of Breath, Cough Cardiovascular: Reports: Chest Pain, Blood Pressure Problem. Denies: Claudication, Dyspnea on Exertion, Edema, Lightheadedness, Orthopnea, Palpitations, PND, Syncope Endocrine: Reports: No Symptoms GI/Abdominal: Reports: No Symptoms : Reports: No Symptoms Musculoskeletal: Reports: No Symptoms Skin: Reports: No Symptoms Neurological: Reports: Confusion. Denies: Dizziness, Headache, Numbness, Paresthesia, Pre-Existing Deficit, Seizure, Syncope, Tingling, Tremors, Trouble Speaking, Difficulty Walking, Weakness, Change in Speech Psychiatric: Reports: No Symptoms Hematologic/Lymphatic: Reports: No Symptoms Immunologic: Reports: No Symptoms ED EXAM, GENERAL - Physical Exam Exam: See Below Exam Limited By: No Limitations General Appearance: Alert, WD/WN, No Apparent Distress, Other (Patient appears well normal gait smiling very friendly answers all questions follows all commands cranial nerves II through XII are intact there are no signs or symptoms of any stroke ) Course - Vital Signs Text/Narrative:: Spoke with patient and son in regards to a 3-hour troponin patient states she is fine waiting for that but she does not want admission knobs or transfer. Discussed with her options of if this was a TIA patient states she cannot will not take any aspirin or blood thinners and if it is what it is she is okay with it. Patient was rechecked multiple times states she feels 100% better and wants to go the house. Second troponin was negative discussed with patient Bauman admission she states no but states she is willing to follow-up with her primary care provider states she has an appointment with her next Sunday. I recommended that she see her within the next 24 to 48 hours or that she can return to emergency room if anything changes or gets worse Last Recorded V/S: Last Vital Signs Temp 36.1 C 05/04/20 19:05 Pulse 82 05/04/20 19:05 Resp 18 05/04/20 19:05 BP 133/53 L 05/04/20 22:41 Pulse Ox 99 05/04/20 19:05 - Orders/Labs/Meds Orders: Active Orders 24 hr Category Date Time Status EKG Documentation Completion [RC] STAT Care 05/04/20 19:10 Active Labs: Laboratory Tests 05/04/20 05/04/20 05/04/20 Range/Units 19:20 19: 19:23 WBC 9.7 (4.0-10.0) x10^3/uL RBC 4.08 (4.00-5.50) x10^6/uL Hgb 13.2 D (12.0-16.0) g/dL Hct 38.2 (33.0-47.0) % MCV 93.6 H D (78.0-93.0) fL MCH 32.4 H (26.0-32.0) pg MCHC 34.6 (32.0-36.0) g/dL RDW Coeff of Chucky 12.9 (10.0-15.0) % Plt Count 337 D (130-400) x10^3/uL Neut % (Auto) 64.1 (50.0-80.0) % Lymph % (Auto) 24.7 L (25.0-50.0) % [place] % (Auto) 10.0 (2.0-11.0) % Eos % (Auto) 0.8 (0.0-4.0) % Baso % (Auto) 0.4 (0.2-1.2) % Sodium 131 L (136-145) mmol/L Potassium 3.8 (3.5-5.1) mmol/L Chloride 94 L (98-107) mmol/L Carbon Dioxide 23 (21-32) mmol/L Anion Gap 17.8 (10-20) mmol/L BUN 14 (7-18) mg/dL Creatinine 0.8 (0.55-1.02) mg/dL Est Cr Clr Drug Dosing TNP Estimated GFR (MDRD) > 60 Glucose 99 (74-106) mg/dL Calcium 9.1 (8.5-10.1) mg/dL Troponin I < 0.017 (<=0.056) ng/mL Urine Color Yellow (YELLOW) Urine Appearance Clear (CLEAR) Urine pH 6.0 (5.0-8.0) Ur Specific [place] 1.010 Urine Protein Negative (NEGATIVE) mg/dL Urine Glucose (UA) Negative (NEGATIVE) mg/dL Urine Ketones Negative (NEGATIVE) mg/dL Urine Occult Blood Trace-lysed H (NEGATIVE) Urine Nitrite Negative (NEGATIVE) Urine Bilirubin Negative (NEGATIVE) Urine Urobilinogen 0.2 (0.2) EU/dL Ur Leukocyte Esterase Trace H (NEGATIVE) 05/04/20 Range/Units 22:28 WBC (4.0-10.0) x10^3/uL RBC (4.00-5.50) x10^6/uL Hgb (12.0-16.0) g/dL Hct (33.0-47.0) % MCV (78.0-93.0) fL MCH (26.0-32.0) pg MCHC (32.0-36.0) g/dL RDW Coeff of [place] (10.0-15.0) % Plt Count (130-400) x10^3/uL Neut % (Auto) (50.0-80.0) % Lymph % (Auto) (25.0-50.0) % [place] % (Auto) (2.0-11.0) % Eos % (Auto) (0.0-4.0) % Baso % (Auto) (0.2-1.2) % Sodium (136-145) mmol/L Potassium (3.5-5.1) mmol/L Chloride (98-107) mmol/L Carbon Dioxide (21-32) mmol/L Anion Gap (10-20) mmol/L BUN (7-18) mg/dL Creatinine (0.55-1.02) mg/dL Est Cr Clr Drug Dosing Estimated GFR (MDRD) Glucose (74-106) mg/dL Calcium (8.5-10.1) mg/dL Troponin I < 0.017 (<=0.056) ng/mL Urine Color (YELLOW) Urine Appearance (CLEAR) Urine pH (5.0-8.0) Ur Specific [place] Urine Protein (NEGATIVE) mg/dL Urine Glucose (UA) (NEGATIVE) mg/dL Urine Ketones (NEGATIVE) mg/dL Urine Occult Blood (NEGATIVE) Urine Nitrite (NEGATIVE) Urine Bilirubin (NEGATIVE) Urine Urobilinogen (0.2) EU/dL Ur Leukocyte Esterase (NEGATIVE) Departure - Departure Time of Disposition: 23:00 Disposition: Home, Self-Care 01 Condition: Good Clinical Impression: Chest pain - Discharge Information *PRESCRIPTION DRUG MONITORING PROGRAM REVIEWED*: No *COPY OF PRESCRIPTION DRUG MONITORING REPORT IN PATIENT BERTHA: No Referrals: PCP,None [Primary Care Provider] - Forms: ED Department Discharge Sepsis Event Note (ED) - Evaluation Sepsis Screening Result: No Definite Risk - Focused Exam Vital Signs: Vital Signs Temp Pulse Resp BP Pulse Ox 05/04/20 22:41 133/53 L 05/04/20 21:20 155/61 H 05/04/20 19:05 36.1 C 82 18 184/76 H 99 - Problem List & Annotations (1) Chest pain SNOMED Code(s): 57856707 Code(s): R07.9 - CHEST PAIN, UNSPECIFIED Status: Acute Current Visit: Yes - My Orders Last 24 Hours: My Active Orders 05/04/20 19:10 EKG Documentation Completion [RC] STAT - Assessment/Plan Last 24 Hours: My Active Orders 05/04/20 19:10 EKG Documentation Completion [RC] STAT
[2020-05-04 19:52] LABS: CHLORIDE,CL 94 mmol/L (98-107); SODIUM,NA 131 mmol/L (136-145)
[2020-05-04 19:59] LABS: ANION GAP 17.8 mmol/L (10-20)
== END 2020-05-04 23:16 | disposition home or self-care (01) ==
LOC: VM.ED 18:56
DX: R07.89 Other chest pain (principal); I48.91 Unspecified atrial fibrillation; Z88.6 Allergy status to analgesic agent; Z88.0 Allergy status to penicillin; Z88.8 Allergy status to other drugs, medicaments and biological substances; Z79.899 Other long term (current) drug therapy; Z88.1 Allergy status to other antibiotic agents
CPT/HCPCS: 36415; 80048; 81003; 84484; 85025; 93005; 99284-GF; 99285-25

== ENCOUNTER 2022-10-23 10:56 | Emergency (ER) | payer MEDICARE, BC ==
[2022-10-23] MEDS ORDERED: Fluorescein 1 MG Ophth Strip EYERT ONE (11:12)
[2022-10-23] MEDS ORDERED: Proparacaine 0.5% Ophth Soln 15 ML Bottle EYELF ONE (11:13)
== END 2022-10-23 11:45 | disposition home or self-care (01) ==
LOC: VM.ED 10:56
DX: S05.01XA Injury of conjunctiva and corneal abrasion without foreign body, right eye, initial encounter (principal); H11.31 Conjunctival hemorrhage, right eye; Z79.899 Other long term (current) drug therapy
CPT/HCPCS: 99283; 99284